=== PATIENT | female | born 1960 | race Caucasian/White ===

== ENCOUNTER → 2019-09-12 | Outpatient (CLI) | payer BC, SELFPAY ==
[2019-09-12 12:15] LABS: Cholesterol 204 mg/dL (200); Glucose 83 mg/dL (74-106); High Density Lipoprotein 45 mg/dL; Triglycerides 127 mg/dL; Very Low Density Lipoprotein 25 mg/dL (5-40)
== END | disposition home or self-care (01) ==
LOC: LABSPEC 11:57
PROVIDERS: Family Provider Family Medicine; PCP Family Medicine; Referring Provider Family Medicine; Visit Provider Family Medicine
DX: Z13.1 Encounter for screening for diabetes mellitus (principal); Z13.220 Encounter for screening for lipoid disorders
CPT/HCPCS: 80061; 82947